=== PATIENT | female | born 1985 | race Two or more races ===

== ENCOUNTER 2021-06-07 12:21 | Emergency (ER) | payer MEDICAID ==
[~2021-06-07] VITALS: Ht 170.2 cm; Wt 97.0 kg
[2021-06-07 15:01] LABS: BASOPHILS % 0.3 % (0.0-2.0); EOSINOPHILS % 0.4 % (0.0-5.0); HEMATOCRIT. 40.1 % (36.0-48.0); HEMOGLOBIN. 13.4 g/dL (12.0-16.0); LYMPHOCYTES % 15.6 % (20.0-50.0); MEAN CORPUSCULAR HEMOGLOBIN 27.8 pg (28.0-32.0); MEAN CORPUSCULAR VOLUME 83.5 fL (81.0-99.0); MEAN PLATELET VOLUME 8.9 fl (7.4-10.4); MONOCYTES % 8.3 % (2.0-8.0); NEUTROPHILS % 75.4 % (40.0-76.0); PLATELET 248 x1000/uL (130-400); RED CELL DISTRIBUTION WIDTH 14.1 % (11.6-14.6)
[2021-06-07 15:10] LABS: CHLORIDE 109 mEq/L (98-107)
[2021-06-07 15:37] LABS: HCG SCREEN NEGATIVE
[2021-06-07 19:49] LABS: CLARITY URINE CLEAR (CLEAR); COLOR URINE YELLOW (YELLOW); KETONES URINE 3+ (NEGATIVE); LEUKOCYTE ESTERASE URINE 1+ (NEGATIVE); NITRITE URINE POSITIVE (NEGATIVE); OCCULT BLOOD URINE TRACE (NEGATIVE); PROTEIN URINE 1+ (NEGATIVE); SPECIFIC GRAVITY URINE 1.027 (1.005-1.030)
[2021-06-07] MEDS ORDERED: CEPHALEXIN 250MG CAPSULE PO ONE (21:15)
[2021-06-08] MEDS ORDERED: OLANZAPINE 5MG TABLET PO ONE (00:45)
[2021-06-08] MEDS ORDERED: FLUOXETINE HCL 10 MG CAPSULE PO SCH (09:00)
[2021-06-08] MEDS ORDERED: ZIPRASIDONE HCL 20MG CAPSULE PO SCH (09:00)
[2021-06-08] MEDS ORDERED: LEVO250T58 PO (12:57)
[2021-06-08] MEDS ORDERED: LEVOFLOXACIN 250MG TABLET PO ONE (13:00)
[2021-06-08] MEDS ORDERED: LEVOFLOXACIN 250MG TABLET PO NR (13:45)
[2021-06-08] MEDS ORDERED: GABAPENTIN 100MG CAPSULE PO SCH (14:00)
[2021-06-08 15:06] VITALS: BP 139/86
== END 2021-06-08 15:47 ==
LOC: ER 12:47
DX: F32.A Depression, unspecified (principal); N39.0 Urinary tract infection, site not specified; R45.851 Suicidal ideations; F20.9 Schizophrenia, unspecified; Z20.822 Contact with and (suspected) exposure to COVID-19; Z75.1 Person awaiting admission to adequate facility elsewhere
CPT/HCPCS: 36415; 80053; 80307; 80320; 80329; 81003; 84443; 84703; 85025; 99285; C9803; U0003; U0005; G0480